=== PATIENT | female | born 1955 | race Caucasian/White ===

== ENCOUNTER → 2018-10-09 | Outpatient (CLI) | payer BC ==
--- NOTE | 2018-10-09 10:57 | BD ---
EXAMINATION TYPE: Axial Bone Density DATE OF EXAM: 10/09/2018 COMPARISON: 08/04/2016 CLINICAL HISTORY: Postmenopausal female. Osteoporosis screening. Height: 65 IN Weight: 131 LBS FRAX RISK QUESTIONS: Secondary Osteoporosis: 3. Menopause before 45: YES HYSTERECTOMY AGE 30 RISK FACTORS HISTORY OF: Family History of Osteoporosis: YES MOTHER Active: YES Postmenopausal woman: YES HYSTERECTOMY AGE 30 Take estrogen and/or progesterone medications: NOT NOW How long: TOOK HORMONES AGE 30- 53 MEDICATIONS: Thyroid Medications: YES Which medication: Synthroid How Lon+ YEARS Osteoporosis Medications: NOT NOW Which medication: Fosamax How Long: AGE 58 FOR LESS THAN 1 YEAR Additional Medications: SYNTHROID, OMEPRAZOLE, PAROXETINE, AMLODIPINE, ZEPRIL, LIPITOR, CYCLOBENZAPRI NE, LORATADINE EXAM MEASUREMENTS: Bone mineral densitometry was performed using the ScaleArc System. Bone mineral density as measured about the Lumbar spine is: ----- L1-L4(G/cm2): 0.944 T Score Values are as follows: ----- L2: -2.0 ----- L3: -1.8 ----- L4: -2.5 ----- L1-L4: -2.0 Bone mineral density has: Decreased -3.1% since study of: 08/04/2016 Bone mineral density about the R hip (g/cm2): 0.747 Bone mineral density about the L hip (g/cm2): 0.734 T Score values are as follows: -----R Neck: -2.1 -----L Neck: -2.2 -----R Total: -1.7 -----L Total: -2.2 Bone mineral density has: Decreased -6.5% since study of: 08/04/2016 IMPRESSION: Osteopenia (T Score between -2.5 and -1). There is slightly increased risk of fracture and the patient may be considered for treatment. Re-Screen 2-5 years. NOTE: T-SCORE=SD OF THE YOUNG ADULT MEAN.
--- NOTE | 2018-10-14 09:42 | MM ---
Reason for exam: screening (asymptomatic). Last mammogram was performed 2 years and 2 months ago. History: Patient is postmenopausal. Taking estrogen for 23 years beginning at age 30. MG Screening Mammo w CAD Bilateral CC and MLO view(s) were taken. Prior study comparison: August 04, 2016, bilateral MG screening mammo w CAD. July 31, 2015, bilateral MG screening mammo w CAD. The breast tissue is heterogeneously dense. This may lower the sensitivity of mammography. There are benign-appearing round bilateral breast calcifications. No discrete abnormality. ASSESSMENT: Benign, BI-RAD 2 RECOMMENDATION: Routine screening mammogram of both breasts in 1 year.
== END | disposition home or self-care (01) ==
LOC: RADMAMWWP 09:05
PROVIDERS: ATTEND Family Medicine
DX: Z12.31 Encounter for screening mammogram for malignant neoplasm of breast (principal); M85.80 Other specified disorders of bone density and structure, unspecified site
CPT/HCPCS: 77067; 77080

== ENCOUNTER → 2020-07-26 | Outpatient (CLI) | payer BC ==
--- NOTE | 2020-07-27 17:57 | MR ---
EXAMINATION TYPE: MR knee LT wo con DATE OF EXAM: 07/26/2020 COMPARISON: 07/08/2028 left knee plain film HISTORY: Left Knee Pain TECHNIQUE: Multiplanar, multisequence imaging of the left knee is performed without IV contrast. FINDINGS: MEDIAL MENISCUS: There is minimal increased linear signal within the substance of the posterior horn medial meniscus compatible with a type I internal tear. No communication with the articular surface i s evident. Anterior horn medial meniscus appears intact. LATERAL MENISCUS: Anterior and posterior horns are intact without tear. CRUCIATE LIGAMENTS: The anterior and posterior cruciate ligaments are intact and unremarkable. COLLATERAL LIGAMENTS: The medial collateral ligament and lateral collateral ligament complex are inta ct and unremarkable. EXTENSOR MECHANISM: Visualized quadriceps and patellar tendons are intact. EFFUSION: No significant suprapatellar joint effusion. POPLITEAL CYST: No popliteal/armas cyst. TRICOMPARTMENT SPACES: Preserved CARTILAGE: Preserved. BONE MARROW SIGNAL: There is a large contusion involving the lateral tibial plateau to the metaphysis . Underlying low signal is present suggesting tibial plateau fracture. The overlying articular cartil age appears intact. OTHER: No additional significant abnormality is appreciated. IMPRESSION: There appears to be a lateral compartment tibial plateau fracture. This is incompletely without exten rosario through the cortex. The overlying articular surface appears intact. Large contusion of the later al tibial plateau is present
== END | disposition home or self-care (01) ==
LOC: RADMRIMAIN 10:03
PROVIDERS: ATTEND Orthopaedic Surgery
DX: S80.02XA Contusion of left knee, initial encounter (principal)

== ENCOUNTER → 2020-08-14 | Outpatient (CLI) | payer BC ==
[2020-08-14 11:45] LABS: Potassium 4.9 mmol/L (3.5-5.1)
[2020-08-14 12:01] LABS: Basophils % (A) 1 %; Eosinophils # (A) 0.1 k/uL (0-0.7); Eosinophils % (A) 3 %; HCT 43.2 % (34.0-46.0); HGB 13.8 gm/dL (11.4-16.0); Lymphocytes # (A) 1.5 k/uL (1.0-4.8); Lymphocytes % (A) 35 %; MCH 29.3 pg (25.0-35.0); MCHC 31.8 g/dL (31.0-37.0); Mean Platelet Volume 7.4; Monocytes # (A) 0.2 k/uL (0-1.0); Monocytes % (A) 5 %; Neutrophils # (A) 2.3 k/uL (1.3-7.7); Neutrophils % (A) 53 %; Platelet Count 279 k/uL (150-450); RDW 13.4 % (11.5-15.5); WBC 4.3 k/uL (3.8-10.6)
== END | disposition home or self-care (01) ==
LOC: LABPAT 10:20
PROVIDERS: ATTEND Orthopaedic Surgery
DX: Z01.818 Encounter for other preprocedural examination (principal); M23.92 Unspecified internal derangement of left knee
CPT/HCPCS: 80051; 85025; 93005

== ENCOUNTER → 2020-09-04 | Day surgery (SDC) | payer BC ==
[2020-08-29 11:46] VITALS: BMI 21.3
--- NOTE | 2020-09-03 18:12 | HP ---
HISTORY AND PHYSICAL DATE OF SURGERY: 09/04/2020 Shira Johnson is a 65-year-old patient who is seen with progressive left knee pain. We discussed options. She elected to proceed with arthroscopy. Consent was obtained. PAST MEDICAL HISTORY: Gastroesophageal reflux disease, hyperlipidemia, hypertension, hypothyroidism. PAST SURGICAL HISTORY: Hysterectomy. DAILY MEDICATIONS: Lipitor, omeprazole, Synthroid, amlodipine/benazepril. ALLERGIES: AMOXICILLIN. SOCIAL HISTORY: She denies tobacco use. PHYSICAL EVALUATION OF THE LEFT KNEE: Range of motion is negative 6 to 95. Mild effusion. Tenderness medial joint line. Positive medial Devon's. Ligaments stable. Hip rotation without pain. Distal neurovascular exam intact. LEFT KNEE RADIOGRAPHS: Left knee radiographs reveal mild osteoarthritis. No fracture. MRI of left knee revealed medial meniscal tear, lateral tibial plateau contusion. IMPRESSION: 1. Internal derangement of left knee with medial meniscal tear. 2. Hyperlipidemia. 3. Hypertension. 4. Hypothyroidism. PLAN: Left knee arthroscopy with partial meniscectomy, partial synovectomy and debridement. MMODL / IJN: [id number] /
[~2020-09-04] MED LIST: BUPIVACAINE (PF) 0.25% 30 ML VIAL SQ ONE; DEXAMETHASONE SOD PHOSPHATE 4 MG/ML 1 ML VIAL IV ONE; LACTATED RINGERS 1,000 ML IV ONE; LACTATED RINGERS 1,000 ML IV SCH; LIDOCAINE 1% (10MG/ML) FOR IV START INTRADERMA PRN; LIDOCAINE 1% INJ 10MG/ML (20 ML MDV) ONE; MIDAZOLAM 2 MG/2 ML VIAL ONE; ONDANSETRON 4 MG/2 ML VIAL IVP ONE; PROPOFOL 10 MG/ML 20 ML VIAL IV ONE; fentaNYL (PF) 50 MCG/ML 2 ML AMP ONE
--- NOTE | 2020-09-04 13:39 | P.OP ---
Date of Procedure: 09/04/20 Preoperative Diagnosis: Internal derangement left knee Postoperative Diagnosis: 1. Tear lateral meniscus left knee 2. Grade 2 chondromalacia medial femoral condyle left knee 3. Grade 1/2 chondromalacia patella left knee 4. Reactive synovitis medial, lateral and suprapatellar compartments left knee Procedure(s) Performed: 1. Arthroscopic partial lateral meniscectomy left knee 2. Arthroscopic chondroplasty medial femoral condyle left knee 3. Arthroscopic chondroplasty patella left knee 4. Arthroscopic partial synovectomy medial, lateral and suprapatellar compartments left knee Anesthesia: LORIA, local Surgeon: Ramin Go Estimated Blood Loss (ml): 7 Pathology: none sent Condition: stable Disposition: PACU Indications for Procedure: 65-year-old patient seen with progressive left knee pain. After treatment options were discussed, she elected to proceed with arthroscopy. Operative Findings: See description of procedure Description of Procedure: Patient was taken to the operative suite. Patient underwent a general anesthetic by the department of anesthesia. Patient was given preoperative antibiotics. The left lower extremity was placed in a well-padded arthroscopic leg garcia. The left leg was prepped and draped in the normal sterile orthopedic fashion. A lateral parapatellar and suprapatellar incision was made. Trochars were inserted. Arthroscopy was initiated. Suprapatellar pouch revea led diffuse thick reactive synovitis. The patellofemoral joint appeared to articulate congruently. There was grade 1/2 chondromalacia with some osteochondral tears present. The scope was guided into the medial gutter. No loose bodies or plica were identified. The scope was then guided into the medial compartment. A medial parapatellar incision was made. Trocar inserted followed by probe. The medial meniscus was probed and found to be stable. There were grade 2 chondromalacia changes of the medial femoral condyle with some osteochondral tears present. There was thick reactive synovitis anteriorly. I performed a chondroplasty of the medial femoral condyle. I performed a partial synovectomy. The residual osteochondral surface was stable. There was good decompression of the synovitis. Scope and probe were then guided into the intercondylar notch. Cruciates were identified, probed and found to be stable. The scope and probe were then guided into lateral compartment. Lateral meniscus revealed a tear along the posterior horn. There was mild grade 1 chondromalacia changes lateral compartment with no osteochondral tears. There was thick reactive synovitis anteriorly. I performed a partial medial meniscectomy getting down to stable meniscal tissue. I performed a partial synovectomy decompressing the reactive synovitis anteriorly. The residual meniscus was stable. There was good decompression of the synovitis. The scope was in guided back into the suprapatellar compartment. I introduced a motorized shaver into the suprapatellar compartment. I debrided some piecemeal fragments of meniscus I encountered. I performed a chondroplasty of the patella. I performed a partial synovectomy. The shaver was removed. The residual osteochondral surface of the patella was stable. There was good decompression of the synovitis. I took one more look on the entire knee, no residual debris. Instruments were now removed from the joint. The joint was infiltrated with .25% Marcaine. Steri-Strips were applied to the portal sites. Sterile dressings were applied. The patient was placed into a ANTONIETA hose. No tourniquet was utilized. The patient was awakened, transferred to a bed and taken to recovery stable satisfactory condition.
[2020-09-04 13:41] VITALS: TEMP 96.8
[2020-09-04 13:50] VITALS: RESP 16
[2020-09-04] MEDS: HYDROmorphone 0.5 MG/0.5 ML SYRINGE IVP PRN ×2 (13:54→14:00)
[2020-09-04 14:44] VITALS: BP 155/98; PULSE 68
== END | disposition home or self-care (01) ==
LOC: OR 11:45
PROVIDERS: ATTEND Orthopaedic Surgery
DX: M23.252 Derangement of posterior horn of lateral meniscus due to old tear or injury, left knee (principal); M94.262 Chondromalacia, left knee; M22.42 Chondromalacia patellae, left knee; M65.862 Other synovitis and tenosynovitis, left lower leg; M17.12 Unilateral primary osteoarthritis, left knee; K21.9 Gastro-esophageal reflux disease without esophagitis; E78.5 Hyperlipidemia, unspecified; I10 Essential (primary) hypertension; E03.9 Hypothyroidism, unspecified; I34.1 Nonrheumatic mitral (valve) prolapse; Z88.0 Allergy status to penicillin; Z90.710 Acquired absence of both cervix and uterus; Z79.899 Other long term (current) drug therapy; Z79.890 Hormone replacement therapy; Z88.8 Allergy status to other drugs, medicaments and biological substances; Z88.5 Allergy status to narcotic agent
CPT/HCPCS: 29881; J2250; J1100; J2405; J0690; J2001; J3010; J2704; J1170

== ENCOUNTER → 2021-07-07 | Outpatient (CLI) | payer BC ==
--- NOTE | 2021-07-07 11:57 | BD ---
EXAMINATION TYPE: Axial Bone Density DATE OF EXAM: 07/07/2021 COMPARISON: 10/09/2018 CLINICAL HISTORY: Disorder of bone density. Height: 65 IN Weight: 128 LBS FRAX RISK QUESTIONS: History of Fracture in Adulthood: LT KNEE AGE 64, LT SHOULDER AGE 62 Secondary Osteoporosis: 3. Menopause before 45: TOTAL HYST AGE 27 Rheumatoid Arthritis: YES RISK FACTORS HISTORY OF: Family History of Osteoporosis: YES MOTHER Active: YES Postmenopausal woman: TOTAL HYST AGE 27 Take estrogen and/or progesterone medications: NOT NOW How long: TOOK FOR 10+ YEARS Lost more than 2 inches in height since high school: MEDICATIONS: Thyroid Medications: YES Which medication: Synthroid How Lon+ YEARS Osteoporosis Medications: NOT NOW Which medication: Fosamax How Lon MONTHS Additional Medications: CALCIUM, SYNTHROID, BLOOD PRESSURE MED, STOMACH MED, CHOLESTEROL MED EXAM MEASUREMENTS: Bone mineral densitometry was performed using the GRAVIDI System. Bone mineral density as measured about the Lumbar spine is: ----- L1-L4(G/cm2): 0.871 T Score Values are as follows: ----- L2: -2.5 ----- L3: -2.7 ----- L4: -3.2 ----- L1-L4: -2.6 Bone mineral density has: Decreased -8.4% since study of: 10/09/2018 Bone mineral density about the R hip (g/cm2): 0.699 Bone mineral density about the L hip (g/cm2): 0.684 T Score values are as follows: -----R Neck: -2.4 -----L Neck: -2.5 -----R Total: -1.9 -----L Total: -1.9 Bone mineral density has: Increased 1.5% since study of: 10/09/2018 IMPRESSION: Osteoporosis (T Score less than -2.5) is now present. There is increased fracture risk and therapy is usually indicated based on age. Re-Screen 1-2 years. NOTE: T-SCORE=SD OF THE YOUNG ADULT MEAN.
--- NOTE | 2021-07-08 12:09 | MM ---
Reason for exam: screening (asymptomatic). Last mammogram was performed 2 years and 9 months ago. History: Patient is postmenopausal. Took estrogen for 23 years beginning at age 30. Physical Findings: A clinical breast exam by your physician is recommended on an annual basis and results should be correlated with mammographic findings. MG Screening Mammo w CAD Bilateral CC and MLO view(s) were taken. Prior study comparison: October 09, 2018, bilateral MG screening mammo w CAD. August 04, 2016, bilateral MG screening mammo w CAD. There are scattered fibroglandular densities. No significant changes when compared with prior studies. ASSESSMENT: Benign, BI-RAD 2 RECOMMENDATION: Routine screening mammogram of both breasts in 1 year.
== END | disposition home or self-care (01) ==
LOC: RADBDWWP 07:54
PROVIDERS: ATTEND Family Medicine
DX: M81.0 Age-related osteoporosis without current pathological fracture (principal); Z78.0 Asymptomatic menopausal state
CPT/HCPCS: 77067; 77080

== ENCOUNTER 2021-10-13 08:14 | Day surgery (SDC) | payer BC ==
[2021-10-08 13:57] VITALS: BMI 21.4
[~2021-10-13 08:14] MED LIST changes: -BUPIVACAINE (PF) 0.25% 30 ML VIAL SQ ONE; -DEXAMETHASONE SOD PHOSPHATE 4 MG/ML 1 ML VIAL IV ONE; -LACTATED RINGERS 1,000 ML IV ONE; -LIDOCAINE 1% INJ 10MG/ML (20 ML MDV) ONE; -MIDAZOLAM 2 MG/2 ML VIAL ONE; -ONDANSETRON 4 MG/2 ML VIAL IVP ONE; -PROPOFOL 10 MG/ML 20 ML VIAL IV ONE; -fentaNYL (PF) 50 MCG/ML 2 ML AMP ONE
[2021-10-13 08:35] VITALS: RESP 16; TEMP 97
[2021-10-13] MEDS ORDERED: ONDANSETRON 4 MG/2 ML VIAL ONE (08:41)
[2021-10-13] MEDS ORDERED: ONDANSETRON 4 MG/2 ML VIAL IVP ONE (08:44)
[2021-10-13] MEDS ORDERED: PROPOFOL 10 MG/ML 20 ML VIAL IV ONE (08:49)
--- NOTE | 2021-10-13 08:56 | P.GSHP ---
History of Present Illness H&P Date: 10/13/21 Chief Complaint: Colon cancer screening 66-year-old female here today for colonoscopy. Last colonoscopy 10 years ago. The study was normal. No bowel complaints. No family history of colon cancer. Past Medical History Past Medical History: Chest Pain / Angina, Fibromyalgia, Hyperlipidemia, Hypertension, Osteoarthritis (OA), Thyroid Disorder Additional Past Medical History / Comment(s): HX IRREGULAR BOWEL MOVEMENTS, HEMORRHOIDS, MITRAL REGURGITATION. LEFT ANKLE ,ACHILLES TENDON INJURY USES WITH BRACE AND CANE.on steroid for tennis elbow-(rt elbow) History of Any Multi-Drug Resistant Organisms: None Reported Past Surgical History: Appendectomy, Heart Catheterization, Heart Catheterization With Stent, Orthopedic Surgery, Tonsillectomy Additional Past Surgical History / Comment(s): EX LAPROSCOPIC FOR INFERTILITY. TIBURCIO KNEE SURGERY, LEFT SHOULDER ROTATOR CUFF Past Anesthesia/Blood Transfusion Reactions: No Reported Reaction Smoking Status: Former smoker - Past Family History Mother Family Medical History: Cancer Additional Family Medical History / Comment(s): LUNG Son(s) Family Medical History: Cancer Medications and Allergies Home Medications Medication Instructions Recorded Confirmed Type Atorvastatin [Lipitor] 10 mg PO Q2D 08/21/18 10/13/21 History Cyclobenzaprine [Flexeril] 10 mg PO TID PRN 08/21/18 10/13/21 History Levothyroxine Sodium [Synthroid] 112 mcg PO QAM 08/21/18 10/13/21 History Omeprazole [PriLOSEC] 10 mg PO QAM 08/21/18 10/13/21 History PARoxetine HCL 20 mg PO QAM 08/21/18 10/13/21 History diphenhydrAMINE [Benadryl] 25 mg PO HS 08/29/20 10/13/21 History Coconut Oil 1,000 mg PO BID 10/08/21 10/13/21 History amLODIPine BESYLATE/BENAZEPRIL 1 tab PO DAILY 10/08/21 10/13/21 History [amLODIPine BESYLATE/BENAZEPRIL 5-20 MG] methylPREDNISolone Dose Pack 4 mg PO DIRECTED 10/08/21 10/13/21 History [Medrol Dose Pack] Allergies Allergy/AdvReac Type Severity Reaction Status Date / Time amoxicillin Allergy Diarrhea Verified 10/08/21 13:45 pregabalin [From Lyrica] Allergy Hallucinations, Verified 10/08/21 13:45 CONFUSION propoxyphene Allergy Unknown Verified 10/08/21 13:45 [From Robinson-Shayne] Surgical - Exam Vital Signs Temp Pulse Resp BP Pulse Ox 97.0 F L 75 16 157/93 97 10/13/21 08:32 10/13/21 08:32 10/13/21 08:32 10/13/21 08:32 10/13/21 08:32 Physical exam: General: Well-developed, well-nourished HEENT: Normocephalic, sclerae nonicteric Abdomen: Nontender, nondistended Extremities: No edema Neuro: Alert and oriented Assessment and Plan (1) Colon cancer screening Narrative/Plan: Will proceed with colonoscopy at this time Current Visit: Yes Status: Acute Code(s): Z12.11 - ENCOUNTER FOR SCREENING FOR MALIGNANT NEOPLASM OF COLON SNOMED Code(s): 157855534
--- NOTE | 2021-10-13 09:14 | P.PCN ---
Date of Procedure: 10/13/21 Procedure(s) Performed: PREOPERATIVE DIAGNOSIS: Colon cancer screening POSTOPERATIVE DIAGNOSIS: Diverticulosis PROCEDURE: Colonoscopy ANESTHESIA: MAC SURGEON: Baudilio Longoria M.D. SPECIMENS: None ENDOSCOPIC PROCEDURE: The patient was placed on the endoscopy table in the left decubitus position. The Olympus colonoscope was inserted into the anus and passed under direct visualization to the base of the cecum. The appendiceal orifice was visualized. From that point the scope was slowly withdrawn inspe cting all surfaces carefully. There were no neoplastic inflammatory or polypoid lesions throughout the cecum, ascending, transverse, descending, sigmoid and rectum. There was moderate diverticulosis noted scattered throughout the colon. Digital rectal examination was normal. The patient was taken to the recovery room in stable condition per anesthesia guidelines. RECOMMENDATIONS: Resume diet. Follow-up colonoscopy in 10 years.
[2021-10-13 09:42] VITALS: BP 146/88; PULSE 66
== END 2021-10-13 09:55 | disposition home or self-care (01) ==
LOC: ORWHC2ENDO 08:14
PROVIDERS: ATTEND Surgery
DX: Z12.11 Encounter for screening for malignant neoplasm of colon (principal); E78.5 Hyperlipidemia, unspecified; I10 Essential (primary) hypertension; M79.7 Fibromyalgia; Z87.891 Personal history of nicotine dependence
CPT/HCPCS: 45378; J2405; J2704

== ENCOUNTER 2024-03-19 10:26 | Emergency (ER) | payer BC, MEDICARE ==
[2024-03-19 10:34] VITALS: TEMP 97.5
--- NOTE | 2024-03-19 11:35 | CT ---
EXAMINATION TYPE: CT brain brenna wo con DATE OF EXAM: 03/19/2024 COMPARISON: None HISTORY: 68-year-old female PAIN AFTER FALL OFF LADDER CT DLP: 2154.4 mGycm Automated exposure control for dose reduction was used. Technique: Examination of the head was done in axial plane without intravenous contrast. Coronal and sagittal reconstructions performed. CT of the cervical spine was obtained in axial plane without intravenous injection of contrast mater ial. Coronal and sagittal reformatted images were obtained from the axial views for evaluation of f ractures, spinal alignment and canal. FINDINGS: Head: There is no evidence of acute intracranial hemorrhage, acute ischemic changes, mass, mass-effect, or extra-axial fluid collection. There is no effacement of cerebral sulci or basal subarachnoid cister ns. There is no hydrocephalus. There is no midline shift. Stevens-white matter distinction is preserv ed. Mild patchy white matter hypodensities in both cerebral hemispheres likely related to changes of employer relations representative irma small vessel ischemic disease. No calvarial fracture. Rightward nasal septal deviation. Tiny 5 mm mucosal retention cyst floor of the left maxillary sinus. Mastoid air cells well pneumatized. Cervical spine: No craniocervical junction anomaly, predental space widening, or prevertebral soft tissue swelling. M ild degenerative change C1 dens articulation. Mild to moderate degenerative disc disease C4-C6 levels. No alberto canal compromise identified. Moderate uncovertebral joint arthropathy mid to lower cervical spine. Straightening of the normal cervical lordosis but with preserved alignment. No acute fracture seen. Sagittal and coronal reformatted images confirm above findings. COMBINED IMPRESSION: 1. No acute intracranial abnormality seen. 2. Mild/moderate spondylotic change especially C4-C6 levels. No acute fracture or malalignment seen.
--- NOTE | 2024-03-19 11:35 | ED ---
Fall HPI - General Chief Complaint: Fall Stated Complaint: fall Time Seen by Provider: 03/19/24 10:32 Source: patient, EMS, RN notes reviewed Mode of arrival: EMS Limitations: no limitations - History of Present Illness Initial Comments: This is a 68-year-old female who presents to the emergency department for a fall. Patient states that she fell off of a ladder and fell 5 feet onto the ground, landing on her lower back. Unsure if she hit her head. Denies any loss of consciousness. Not taking any blood thinners. Most of the pain is localized to her middle and lower back. She is able to move but states that it is painful. She does still have sensation in her lower extremities and is able to move them. Pain is controlled if sitting still. MD Complaint: fall - Related Data Home Medications Medication Instructions Recorded Confirmed Atorvastatin [Lipitor] 10 mg PO Q2D 08/21/18 10/13/21 Cyclobenzaprine [Flexeril] 10 mg PO TID PRN 08/21/18 10/13/21 Levothyroxine Sodium [Synthroid] 112 mcg PO QAM 08/21/18 10/13/21 Omeprazole [PriLOSEC] 10 mg PO QAM 08/21/18 10/13/21 PARoxetine HCL 20 mg PO QAM 08/21/18 10/13/21 diphenhydrAMINE [Benadryl] 25 mg PO HS 08/29/20 10/13/21 Coconut Oil 1,000 mg PO BID 10/08/21 10/13/21 amLODIPine BESYLATE/BENAZEPRIL 1 tab PO DAILY 10/08/21 10/13/21 [amLODIPine BESYLATE/BENAZEPRIL 5-20 MG] methylPREDNISolone Dose Pack 4 mg PO DIRECTED 10/08/21 10/13/21 [Medrol Dose Pack] Previous Rx's Medication Instructions Recorded HYDROcodone/APAP 7.5-325MG [Lanse 1 tab PO Q6HR PRN 3 Days #12 tab 03/19/24 7.5-325] Lidocaine 5% Patch [Lidoderm 5% 1 patch TOPICAL DAILY PRN #30 patch 03/19/24 Patch] Naproxen Sodium 550 mg PO BID PRN #30 tablet 03/19/24 Allergies Allergy/AdvReac Type Severity Reaction Status Date / Time amoxicillin Allergy Diarrhea Verified 10/08/21 13:45 pregabalin [From Lyrica] Allergy Hallucinations, Verified 10/08/21 13:45 CONFUSION propoxyphene Allergy Unknown Verified 10/08/21 13:45 [From Darvocet-N] Review of Systems ROS Statement: Those systems with pertinent positive or pertinent negative responses have been documented in the HPI. ROS Other: All systems not noted in ROS Statement are negative. Past Medical History Past Medical History: GERD/Reflux, Hyperlipidemia, Hypertension, Osteoarthritis (OA), Pneumonia, Thyroid Disorder Additional Past Medical History / Comment(s): MITRAL REGURGITATION. LEFT ANKLE ,ACHILLES TENDON INJURY USES WITH BRACE AND CANE. History of Any Multi-Drug Resistant Organisms: None Reported Past Surgical History: Appendectomy, Heart Catheterization, Hysterectomy, Tonsillectomy Additional Past Surgical History / Comment(s): EX LAPROSCOPIC FOR INFERTILITY. HEART CATH NORMAL Past Anesthesia/Blood Transfusion Reactions: No Reported Reaction Past Psychological History: Anxiety Past Alcohol Use History: Rare - Past Family History Mother Family Medical History: Cancer Additional Family Medical History / Comment(s): LUNG Son(s) Family Medical History: Cancer General Exam Limitations: no limitations General appearance: alert, in no apparent distress Head exam: Present: atraumatic, normocephalic, normal inspection Respiratory exam: Present: normal lung sounds bilaterally. Absent: respiratory distress, wheezes, rales, rhonchi, stridor Cardiovascular Exam: Present: regular rate, normal rhythm, normal heart sounds. Absent: systolic murmur, diastolic murmur, rubs, gallop, clicks Extremities exam: Present: other (Full range of motion of the bilateral lower extremities. 2+ DP and PT pulses.) Neurological exam: Present: alert, oriented X3, CN II-XII intact Psychiatric exam: Present: normal affect, normal mood Skin exam: Present: warm, dry, intact, normal color. Absent: rash Course Vital Signs 03/19/24 03/19/24 10:29 14:10 Temperature 97.5 F L Pulse Rate 73 76 Respiratory 22 17 Rate Blood Pressure 165/91 145/85 O2 Sat by Pulse 100 97 Oximetry Medical Decision Making - Medical Decision Making This is a 68-year-old female who presents to the emergency department for back pain after a fall. Was pt. sent in by a medical professional or institution? @ -No Did you speak to anyone other than the patient for history? @ -No Did you review nursing and triage notes? @ -Yes, and I agree, it is accurate with regards to the patient's symptoms. Were old charts reviewed? @ -No Differential Diagnosis? @ -Differential Back Pain: Strain, zoster, cauda equina syndrome, epidural abscess, vertebral osteomyelitis, discitis, fracture, subluxation, disc herniation, DJD, spinal stenosis, dissection, AAA, pancreatitis, peptic ulcer disease, pyelonephritis, kidney stone, this is not meant to be an all-inclusive list. EKG interpreted by me (3pts min.)? @ -Not obtained X-rays interpreted by me (1pt min.)? @ -Not obtained CT interpreted by me (1pt min.)? @ -Computed tomography scan of the brain and c-spine obtained. My interpretation identifies no evidence of an acute intracranial hemorrhage, skull fracture, or cervical spine fracture. CT scan of the thoracic and lumbar spine obtained. My interpretation identifies an L1 fracture. U/S interpreted by me (1pt. min.)? @ -Not obtained What testing was considered but not performed? (CT, X-rays, U/S, labs)? Why? @ -None What meds were considered but not given? Why? @ -None Did you discuss the management of the patient with other professionals? @ -No Did you reconcile home meds? @ -No Was smoking cessation discussed for >3mins.? @ -No Was critical care preformed (if so, how long)? @ -No Were there social determinants of health that impacted care today? How? (Homelessness, low income, unemployed, alcoholism, drug addiction, transpor tation, low edu. Level, literacy, decrease access to med. care, [place] [facility], rehab)? @ -No Was there de-escalation of care discussed even if they declined? (Discuss DNR or withdrawal of care, Hospice)? @ -No What co-morbidities impacted this encounter? (DM, HTN, Smoking, COPD, CAD, Cancer, CVA, Hep., AIDS, mental health diagnosis, sleep apnea, morbid obesity)? @ -Osteoarthritis Was patient admitted / discharged? @ -Discharged. CT scan of the brain and C-spine revealed no acute process. CT scan of the thoracic and lumbar spine demonstrates an acute superior endplate fracture anteriorly at L1 and minimal 10% anterior height loss. There is no retropulsion into the spinal canal. Pain was managed in the emergency department. Patient is already established with Dr. Wu, orthopedics, and is advised to follow-up with him regarding the L1 compression fracture. Prescription for naproxen, Lanse, and lidocaine patches provided for symptomatic management. Patient discharged home in stable condition. Undiagnosed new problem with uncertain prognosis? @ -None Drug Therapy requiring intensive monitoring for toxicity (Heparin, Nitro, Insulin, Cardizem)? @ -None Were any procedures done? @ -None Diagnosis/symptom? @ -Fall, L1 fracture Acute, or Chronic, or Acute on Chronic? @ -Acute Uncomplicated (without systemic symptoms) or Complicated (systemic symptoms)? @ -Uncomplicated Side effects of treatment? @ -None Exacerbation, Progression, or Severe Exacerbation] @ -Not applicable Poses a threat to life or bodily function? @ -The pain may limit her ability to ambulate and function. Return precautions reviewed in depth, the patient is instructed to return to the emergency department with any new, worsening, or concerning symptoms. Patient verbalized understanding. This case was discussed in detail with the attending ED physician, Dr. Horvath. Presentation, findings, and treatment plan discussed in detail as well. - Radiology Data Radiology results: report reviewed, image reviewed Disposition Clinical Impression: Fall, L1 vertebral fracture Disposition: HOME SELF-CARE Instructions (If sedation given, give patient instructions): Thoracolumbar Fracture (ED) Additional Instructions: Return to the emergency department with any new, worsening, or concerning symptoms. Take the naproxen twice daily with Tylenol as needed for pain relief. Take the Lanse sparingly when your pain is the most severe and be aware that it may make you drowsy. You can also apply the lidocaine patches daily. Contact orthopedics as listed below for a follow-up appointment. Let them know that you were seen in the emergency department for a fall and found to have a fracture to your L1 vertebrae. Follow up with your primary care provider in 1-2 days. Prescriptions: Lidocaine 5% Patch [Lidoderm 5% Patch] 1 patch TOPICAL DAILY PRN #30 patch PRN Reason: Pain Naproxen Sodium 550 mg PO BID PRN #30 tablet PRN Reason: Pain HYDROcodone/APAP 7.5-325MG [Lanse 7.5-325] 1 tab PO Q6HR PRN 3 Days #12 tab PRN Reason: Pain Is patient prescribed a controlled substance at d/c from ED?: Yes When asked, does pt state using other controlled substances?: No If prescribed controlled substance>3 days was MAPS reviewed?: Prescribed <3 Days Referrals: Jenna Longoria MD [Primary Care Provider] - 1-2 days Erin Wu DO [Doctor of Osteopathic Medicine] - 1-2 days Time of Disposition: 13:19
--- NOTE | 2024-03-19 11:51 | CT ---
EXAMINATION TYPE: CT thor lumbar spine wo con DATE OF EXAM: 03/19/2024 COMPARISON: None HISTORY: 68-year-old female PAIN AFTER FALL OFF LADDER TECHNIQUE: Contiguous axial scanning of the with thoracic and lumbar spine without IV contrast. Coron al and sagittal reconstructions performed. CT DLP: 2154.4 mGycm Automated exposure control for dose reduction was used. FINDINGS: The interbody ankylosis at T1-T2. Moderate degenerative disc disease focally at T9-10. Incidental 6 l umbar type vertebral bodies. There is a superior endplate fracture anteriorly at L1 with minimal, 10% anterior height loss. No retropulsion into the ventral spinal canal. No additional acute fracture or malalignment is seen. Moderate degenerative disc disease mid to lower lumbar spine. Posterior disc bulge impresses on the v entral thecal sac at L5-L6 without significant spinal canal stenosis. Moderate neuroforaminal stenosis right greater than left at L6-S1. Partially visualized suspected, minimally distended gallbladder probably relating to fasting state. L eft-sided colonic diverticulosis. Prominent distention of the urinary bladder. IMPRESSION: 1. ACUTE SUPERIOR ENDPLATE FRACTURE ANTERIORLY AT L1 AND MINIMAL 10% ANTERIOR HEIGHT LOSS. NO RETROPU LSION INTO THE SPINAL CANAL. 2. NO ADDITIONAL FRACTURE OR MALALIGNMENT SEEN. 3. VARIANT ANATOMY WITH 6 LUMBAR TYPE VERTEBRAL BODIES. MODERATE DEGENERATIVE DISC DISEASE MID TO LOW ER LUMBAR SPINE AND ALSO T9-T10. MODERATE BILATERAL NEUROFORAMINAL STENOSIS L6-S1. 4. SUSPECT A PROMINENTLY DISTENDED GALLBLADDER PROBABLY RELATING TO FASTING STATE. PROMINENT DISTENTI ON OF THE URINARY BLADDER IS WELL. CORRELATE TO ENSURE THAT THIS REPRESENTS VOLUNTARY RETENTION.
[2024-03-19] MEDS: KETOROLAC 15 MG/ML 1 ML VIAL IVP STA (12:30)
[2024-03-19] MEDS: LIDOCAINE 4% PATCH TOPICAL ONE (12:31)
[2024-03-19] MEDS: MORPHINE SULFATE 4 MG/ML SYRINGE IVP STA (12:31)
[2024-03-19 14:11] VITALS: BP 145/85; PULSE 76; RESP 17
== END 2024-03-19 14:17 | disposition home or self-care (01) ==
LOC: EC 10:26
DX: S32.019A Unspecified fracture of first lumbar vertebra, initial encounter for closed fracture (principal); Z88.0 Allergy status to penicillin; Z88.8 Allergy status to other drugs, medicaments and biological substances; M19.90 Unspecified osteoarthritis, unspecified site; W11.XXXA Fall on and from ladder, initial encounter
CPT/HCPCS: 96374; 99285; 96375; 72128; 72125; 72131; 70450; J2270; J1885

== ENCOUNTER → 2024-08-01 | Outpatient (CLI) | payer MEDICARE ==
--- NOTE | 2024-08-01 19:48 | BD ---
EXAMINATION TYPE: Axial Bone Density DATE OF EXAM: 08/01/2024 CLINICAL HISTORY: 69 years old Female. ICD-10 CODE: M810 AGE RELATED OSTEO , Additional History: Height: 5 ft 5 in Weight: 138 FRAX RISK QUESTIONS: Alcohol (3 or more units per day): no Family History (Parent hip fracture): no Glucocorticoids (More than 3mos): no (Ex: prednisone, prednisolone, methylprednisolone, dexamethasone, and hydrocortisone). History of Fracture in Adulthood: yes Secondary Osteoporosis: 1. Type 1 Diabetes: no 2. Hyperthyroidism: no 3. Menopause before 45: yes 4. Malnutrition: no 5. Chronic liver disease: no Rheumatoid Arthritis: no Current Tobacco Use: no RISK FACTORS HISTORY OF: Spine Fracture: tspine When: 2023 Surgery to Spine/Hip(right/left)/Wrist (right/left): tspine compression fx When: 2023 MEDICATIONS: Thyroid Medications: yes Which medication: synthroid How Lon years Osteoporosis Medications: in the past none now EXAM MEASUREMENTS: Bone mineral densitometry was performed using the [employer] System. Bone mineral density as measured about the Lumbar spine is: ----- L1-L4(G/cm2): 0.937 T Score Values are as follows: ----- L1: 0.2 ----- L2: -2.4 ----- L3: -2.3 ----- L4: -3.1 ----- L1-L4: -2.0 Z Score Values are as follows: ----- L1: 1.9 ----- L2: -0.7 ----- L3: -0.6 ----- L4: -1.4 ----- L1-L4: -0.3 Bone mineral density has: increased 7.6 % since study of: 2020 Bone mineral density about the R hip (g/cm2): 0.694 Bone mineral density about the L hip (g/cm2): 0.647 T Score values are as follows: -----R Neck: -2.5 -----L Neck: -2.8 -----R Total: -1.9 -----L Total: -2.2 Z Score values are as follows: -----R Neck: -0.9 -----L Neck: -1.2 -----R Total: -0.5 -----L Total: -0.8 Bone mineral density has: decreased -2.5 % since study of: 2020 FRAX%s: The graph provided illustrates a 31.1 % chance for a major osteoporotic fx and a 9.8 % chance for the hips probability for fx in 10 years time. IMPRESSION: Osteopenia (T Score between -2.5 and -1). There is slightly increased risk of fracture and the patient may be considered for treatment. Re-Screen 2-5 years. NOTE: T-SCORE=SD OF THE YOUNG ADULT MEAN. [facility], , 08/01/2024 7:46 PM
--- NOTE | 2024-08-06 13:07 | MM ---
Reason for Exam: Screening (asymptomatic). Last mammogram was performed 3 year(s) and 1 month(s) ago. Patient History: Menarche at age 14. First Full-Term at age 27. Left ovary removed at age 30. Right ovary removed at age 30. Hysterectomy at age 30. Postmenopausal. Estrogen, starting at age 30 for 23 years. Risk Values: Lacie 5 year model risk: 1.9%. NCI Lifetime model risk: 6.4%. Prior Study Comparison: 08/04/2016 Bilateral Screening Mammogram, [facility]. 10/09/2018 Bilateral Screening Mammogram, [facility]. 07/07/2021 Bilateral Screening Mammogram, [facility]. Tissue Density: There are scattered areas of fibroglandular density. Findings: Analyzed By CAD. Right breast: There is no suspicious group of microcalcifications or new suspicious mass. Left breast: There is no suspicious group of microcalcifications or new suspicious mass. Overall Assessment: Negative, BI-RAD 1 Management: Screening Mammogram of both breasts in [address] [facility] will attempt to contact patient to return for supplemental views and ultrasound if indicated. Patient should continue monthly self-breast exams. A clinical breast exam by your physician is recommended on an annual basis. This exam should not preclude additional follow-up of suspicious palpable abnormalities. Note on Lacie scores and lifetime risk: 1. A Lacie score greater than 3% is considered moderate risk. If this is the case, consider specialist referral to assess eligibility for a risk reducing agent. 2. If overall lifetime risk for the development of breast cancer is 20% or higher, the patient may qualify for future screening with alternating mammogram and breast MRI. [facility], , 08/06/2024 1:03 PM. Electronically signed and approved by: Atif Frey DO
== END | disposition home or self-care (01) ==
LOC: RADMAMWWP 09:15
PROVIDERS: ATTEND Family Medicine
DX: Z12.31 Encounter for screening mammogram for malignant neoplasm of breast (principal); Z78.0 Asymptomatic menopausal state; Z90.722 Acquired absence of ovaries, bilateral; R92.323 Mammographic fibroglandular density, bilateral breasts; M81.0 Age-related osteoporosis without current pathological fracture; M85.88 Other specified disorders of bone density and structure, other site
CPT/HCPCS: 77067; 77080

== ENCOUNTER → 2025-03-11 | Outpatient (CLI) | payer MEDICARE ==
[~2025-03-11] MED LIST changes: -LACTATED RINGERS 1,000 ML IV SCH; -LIDOCAINE 1% (10MG/ML) FOR IV START INTRADERMA PRN; +SODIUM CHLORIDE 0.9% 250 ML in EMPTY BAG 1 BAG IV PRN
[2025-03-11 10:42] VITALS: BP 173/85; PULSE 67; RESP 18; TEMP 98.7
[2025-03-11] MEDS: SODIUM CHLORIDE 0.9% 500 ML 500 ML in EMPTY BAG 1 BAG IV PRN (10:43)
[2025-03-11] MEDS: ZOLEDRONIC ACID 5 MG in SODIUM CHLORIDE 0.9% 100 ML IV NR (11:11)
== END ==
LOC: PROCWHC3 10:23
PROVIDERS: ATTEND Family Medicine
DX: M80.08XA Age-related osteoporosis with current pathological fracture, vertebra(e), initial encounter for fracture (principal); S32.018D Other fracture of first lumbar vertebra, subsequent encounter for fracture with routine healing; Z88.0 Allergy status to penicillin
CPT/HCPCS: 96365; J3489